=== PATIENT | male | born 1990 | race Asian ===

== ENCOUNTER 2018-10-20 22:56 | Observation (INO) | payer OTHER ==
[2018-10-20] MEDS ORDERED: NS 0.9% 1000 ML** 1,000 ML IV ONE (23:16)
[2018-10-20] MEDS ORDERED: Ondansetron INJ* 2 MG/ML VIAL IV ONE (23:22)
[2018-10-20] MEDS ORDERED: Morphine 4 MG/ML VIAL (1 ml) 4 MG/ML VIAL IV ONE (23:22)
--- NOTE | 2018-10-20 23:24 | ED ---
Abdominal Pain/Male - HPI Summary HPI Summary: Patient complains of lower abdominal pain 5 hours. Pain described as constant at 7/10 with spikes going up to 10/10. Vomiting 4-5 times today, diarrhea 4-5 times a day. Denies blood in either. Patient states he takes Tums 2 tabs 2 hours ago with no relief. Denies fever, cough, sore throat, CP, SOB, change in urine, penile or testicular symptoms. Medical history is none. Abdominal surgical history is none. - History of Current Complaint Chief Complaint: EDAbdPain Stated Complaint: ABD PAIN PER PT Time Seen by Provider: 10/20/18 23:15 Hx Obtained From: Patient Onset/Duration: Sudden Onset, Lasting Hours Timing: Constant Severity Initially: Severe Severity Currently: Severe Pain Intensity: 8 Pain Scale Used: 0-10 Numeric Location: Discrete At: RLQ, Suprapubic Radiates: No Character: Dull, Cramping Aggravating Factor(s): Nothing Alleviating Factor(s): Nothing Associated Signs And Symptoms: Positive: Decreased Appetite, Nausea, Vomiting, Diarrhea - Allergies/Home Medications Allergies/Adverse Reactions: Allergies Allergy/AdvReac Type Severity Reaction Status Date / Time No Known Allergies Allergy Verified 10/20/18 23:01 PMH/Surg Hx/FS Hx/Imm Hx Endocrine/Hematology History: Denies: Hx Diabetes Cardiovascular History: Denies: Hx Pacemaker/ICD History: Denies: Hx Dialysis, Hx Renal Disease Sensory History: Denies: Hx Hearing Aid Opthamlomology History: Denies: Hx Eye Prosthesis EENT History: Denies: Hx Deafness Neurological History: Denies: Hx Dementia Psychiatric History: Denies: Hx Panic Disorder Infectious Disease History: Yes Infectious Disease History: Denies: Traveled Outside the [place] in Last 30 Days - Family History Known Family History: Positive: Non-Contributory - Social History Alcohol Use: None Substance Use Type: Reports: None Smoking Status (MU): Never Smoked Tobacco Review of Systems Constitutional: Negative Eyes: Negative ENT: Negative Cardiovascular: Negative Respiratory: Negative Positive: Abdominal Pain, Vomiting, Diarrhea, Nausea Genitourinary: Negative Musculoskeletal: Negative Skin: Negative Neurological: Negative Psychological: Normal All Other Systems Reviewed And Are Negative: Yes Physical Exam - Summary Physical Exam Summary: Tenderness in suprapubic area and right lower quadrant. Abdominal exam otherwise unremarkable. Triage Information Reviewed: Yes Vital Signs On Initial Exam: Initial Vitals Temp Pulse Resp BP Pulse Ox 98.2 F 80 16 137/87 96 10/20/18 22:59 10/20/18 22:59 10/20/18 22:59 10/20/18 22:59 10/20/18 22:59 Vital Signs Reviewed: Yes Appearance: Positive: Well-Appearing Skin: Positive: Warm Head/Face: Positive: Normal Head/Face Inspection Eyes: Positive: Normal Neck: Positive: Supple Respiratory/Lung Sounds: Positive: Clear to Auscultation Cardiovascular: Positive: Normal Abdomen Description: Positive: Other: Musculoskeletal: Positive: Normal Neurological: Positive: Normal Psychiatric: Positive: Normal AVPU Assessment: Alert - Philomena Coma Scale Best Eye Response: 4 - Spontaneous Best Motor Response: 6 - Obeys Commands Best Verbal Response: 5 - Oriented Coma Scale Total: 15 Diagnostics - Vital Signs Vital Signs Temp Pulse Resp BP Pulse Ox 10/20/18 22:59 98.2 F 80 16 137/87 96 - Laboratory Result Diagrams: 10/20/18 23:29 10/20/18 23:29 Lab Statement: Any lab studies that have been ordered have been reviewed, and results considered in the medical decision making process. Abdominal Pain Male Course/Dx - Course Course Of Treatment: Patient complains of lower abdominal pain 5 hours. Pain described as constant at 7/10 with spikes going up to 10/10. Vomiting 4-5 times today, diarrhea 4-5 times a day. Denies blood in either. Patient states he takes Tums 2 tabs 2 hours ago with no relief. Denies fever, cough, sore throat, CP, SOB, change in urine, penile or testicular symptoms. Medical history is none. Abdominal surgical history is none. Vital signs within normal limits. WBC 17. Bili 1.5. Labs otherwise unremarkable. Patient refused morphine for pain. CT abdomen and pelvis positive for acute appendicitis uncomplicated. Patient admitted to surgery Dr. Saxena. - Diagnoses Provider Diagnoses: Acute appendicitis Discharge ED - Sign-Out/Discharge Documenting (check all that apply): Patient Departure Patient Received Moderate/Deep Sedation with Procedure: No - Discharge Plan Condition: Stable Disposition: ADMITTED TO [facility] Referrals: Ousmane Santiago MD [Primary Care Provider] - - Billing Disposition and Condition Condition: STABLE Disposition: Admitted to [facility]
[2018-10-20 23:35] LABS: ABS Eosinophils 0.1 10^3/ul (0-0.6); ABS Lymphocytes 0.8 10^3/ul (1.0-4.8); ABS Monocytes 0.6 10^3/ul (0-0.8); ABS Neutrophils 16.3 10^3/ul (1.5-7.7); Eosinophil % 0.3 %; Hematocrit 47 % (42-52); Hemoglobin 16.4 g/dL (14.0-18.0); Lymphocyte % 4.4 %; Mean Corpuscular HGB Conc 35 g/dL (31-36); Mean Corpuscular Hemoglobin 31 pg (27-31); Mean Corpuscular Volume 87 fL (80-94); Mean Platelet Volume 8.8 fL (7.4-10.4); Platelet Count 212 10^3/uL (150-450); Red Blood Count 5.39 10^6 /uL (4.18-5.48); Red Cell Distribution Width 13 % (10-15); White Blood Count 17.8 10^3/uL (3.5-10.8)
[2018-10-20 23:55] LABS: Albumin 4.8 g/dL (3.2-5.2); Albumin/Globulin Ratio 2.3 (1-3); BUN/Creatinine Ratio 10.3 (8-20); C Reactive Protein 7.87 mg/L (<8.01); Calcium 9.6 mg/dL (8.6-10.3); EGFR African American 145.6 (>60); EGFR Non-African American 120.3 (>60); Globulin 2.1 g/dL (2-4); Potassium 3.9 mmol/L (3.5-5.0); Total Bilirubin 1.5 mg/dL (0.2-1.0); Total Protein 6.9 g/dL (6.4-8.9)
[2018-10-21] MEDS ORDERED: Iohexol 300* (CONTRAST) 10 ML SDV IV ONE (00:13)
[2018-10-21] MEDS ORDERED: Piperacillin/Tazobac ADVAN(*) 3.375 GM in NS 0.9% 100 ML* 100 ML IVPB ONE ×2 (01:15→07:40)
[2018-10-21] MEDS ORDERED: NS 0.9% 1000 ML** 1,000 ML IV SCH ×2 (01:45→04:30)
[2018-10-21] MEDS ORDERED: Zosyn per Pharmacy* NOTE FOLLOW UP SCH (02:00)
[2018-10-21 03:08] LABS: Urine Appearance Clear; Urine Bilirubin Negative (Negative); Urine Blood Negative (Negative); Urine Color Yellow; Urine Glucose Negative (Negative); Urine Ketones 1+ (Negative); Urine Nitrite Negative (Negative); Urine Protein Negative (Negative); Urine Specific Gravity 1.046 (1.010-1.030); Urine Urobilinogen Negative (Negative)
[2018-10-21] MEDS ORDERED: Metoclopramide IV* 5 MG/ML 2 ML VIAL IV PRN (03:08)
[2018-10-21] MEDS ORDERED: Morphine 4 MG/ML VIAL (1 ml) 4 MG/ML VIAL IV PRN (03:10)
[2018-10-21] MEDS ORDERED: Morphine INJ* 2 MG/ML 1 ML SYRINGE (TWO MG - NEW SYRINGE VERSION) IV PRN (03:11)
[2018-10-21] MEDS ORDERED: Piperacillin/Tazobac ADVAN(*) 3.375 GM in NS 0.9% 100 ML* 100 ML IVPB SCH (07:30)
[2018-10-21] MEDS ORDERED: Influenza VAC *QUAD* 2019-20* 0.5 ML SYRINGE IM ONE (09:00)
--- NOTE | 2018-10-21 09:43 | PN ---
Progress Note - Progress Note Date of Service: 10/21/18 SOAP: Subjective: Patient seen and examined Care discussed with Tramaine Mercado NP He developed abdominal pain last night, some nausea, now anorexic Pain became localized in the RLQ, pain on movement Objective: Temp Pulse Resp BP Pulse Ox 99.0 F 68 20 114/61 99 10/21/18 07:41 10/21/18 07:41 10/21/18 07:45 10/21/18 07:41 10/21/18 07:41 PEX: Comfortable Abd is soft and non-distended. Bowel sounds are present. Tenderness with guarding in the RLQ, no mass, no peritoneal signs Labs and CT reviewed Assessment: Acute appendicitis-- Plan: Discussed clinical findings, labs and CT scan. Discussed with care of acute appendicitis and I recommend laparoscopic appendectomy today. Procedure discussed with him and the risks of, but not limited to, of bleeding, infection , abscess, sepsis, injury to peritoneal and retroperitoneal structures, open procedure, anesthesia, blood clots explained. We also discussed non-operative management with IV and oral antibiotics and I do not recommend this but he is aware of this option and wants to proceed with surgery. We also discussed post- operative hospital stay and surgery recovery times. Laparoscopic appendectomy today.
--- NOTE | 2018-10-21 10:18 | HP ---
CC: [facility], [facility] * HISTORY AND PHYSICAL: DATE OF ADMISSION: 10/21/18 LOCATION: This patient was seen at [facility] in room 332, on Sunday , 10/21/18. ATTENDING SURGEON: Dr. Niall Juarez * (dictated by Mabel Mercado NP). CHIEF COMPLAINT: Abdominal pain. HISTORY OF PRESENT ILLNESS: The patient is a 27-year-old male who presented to the emergency department around 11:30 p.m. last evening complaining of lower abdominal pain for 5 hours with a sudden onset. He described the pain as 7/10 with spikes going up to 10/10. He had vomited 4 to 5 times after the onset of the pain and also had loose stools. He denies any dysuria, fever, or chills, or any upper respiratory symptoms. He tried to take 2 Tums with no relief. He has had no previous abdominal surgery. CAT scan in the emergency department revealed a dilated thick walled appendix; mid periappendiceal inflammatory changes. White blood cell count was elevated at 17.8 with a mild left shift; electrolytes were within normal limits except for mildly elevated glucose at 110 and mildly elevated total bilirubin at 1.5. He was admitted and started on IV antibiotics and kept n.p.o. PAST MEDICAL HISTORY: Generally healthy, no acute or chronic conditions. PAST SURGICAL HISTORY: [place] teeth extraction with local anesthetic. MEDICATIONS: None currently. ALLERGIES: No known drug allergies. FAMILY HISTORY: No known anesthesia complications, bleeding tendencies, or clotting disorders. 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 No other substance abuse. REVIEW OF SYSTEMS: Constitutional: No excessive fatigue; no fever or chills at home. Endocrine: No diabetes or thyroid disease. Respiratory: No chronic cough or shortness of breath. Cardiovascular: No anginal chest pain or palpitations. Gastrointestinal: As described in history of present illness. Genitourinary: No dysuria, no hematuria. Musculoskeletal: Normal strength and tone. Neurologic: Alert and oriented x3. Moves all 4 extremities. Steady gait. General: No history of easy bleeding or blood transfusions; no history of deep vein thrombosis or pulmonary embolism; he has never received general anesthesia and tolerated local anesthesia well when he underwent wisdom teeth extraction. PHYSICAL EXAMINATION GENERAL: The patient is a 27-year-old male, well developed, well nourished, in no acute distress. VITAL SIGNS: Height 5 feet 6 inches, weight 155 pounds, body mass index 25. Blood pressure 114/60, pulse 68 and regular, respiratory rate 16, temperature 99 , O2 saturation on room air 99%. HEENT: Benign. NECK: Supple. No cervical lymphadenopathy. LUNGS: Breath sounds bilaterally clear and equal. HEART: Regular rate and rhythm. No murmurs or rubs appreciated. ABDOMEN: Hypoactive bowel sounds, nondistended, soft; exquisitely tender over McBurney point. No obvious masses or organomegaly, but exam is limited by the patient's discomfort; no guarding or rebound. GENITALIA: Exam is deferred. RECTAL: Exam is deferred. EXTREMITIES: Warm without edema or skin ulceration. NEUROLOGIC: Alert and oriented x3. SKIN: Warm, dry, intact. IMPRESSION: Acute appendicitis; CAT scan of the abdomen and pelvis consistent with dilated thick walled appendix and mid periappendiceal inflammatory changes. PLAN: Per Dr. Juarez, the patient will be taken to the operating room today for laparoscopic appendectomy; the nature of the surgical procedure was discussed as well as the postoperative recovery. The patient is in agreement to proceed as outlined. TIME SPENT: Sixty minutes with greater than 50% in [id number] history taking , physical examination, and coordination of care. CLINT MERCADO NP [id number]/[facility] #: [id number] ARUN
[2018-10-21] MEDS ORDERED: Sodium Citrate/Citric Acid* 15 ML UDC ONE (13:17)
[2018-10-21] MEDS ORDERED: Sodium Citrate/Citric Acid* 15 ML UDC PO ONE (13:18)
[2018-10-21] MEDS ORDERED: Ondansetron INJ* 2 MG/ML VIAL IV PRN (13:19)
[2018-10-21] MEDS ORDERED: HYDROcodone/ACETAMIN 5-325 MG* 1 TAB PO PRN (13:19)
[2018-10-21] MEDS ORDERED: Ketorolac INJ* 30 MG/ML 1 ML VIAL IV PRN (13:19)
[2018-10-21] MEDS ORDERED: Naloxone* 0.4 MG/ML 1 ML VIAL IV PRN (13:19)
[2018-10-21] MEDS ORDERED: fentaNYL* 50 MCG/ML 2 ML VIAL (100 MCG VIAL) IV PRN (13:19)
[2018-10-21] MEDS ORDERED: oxyCODONE/Acetamin 5/325 MG* TAB PO PRN (13:19)
[2018-10-21] MEDS ORDERED: Bupivacaine 0.25% W/EPI* 10 ML SDV ONE (13:26)
[2018-10-21] MEDS ORDERED: fentaNYL* 50 MCG/ML 2 ML VIAL (100 MCG VIAL) ONE (13:28)
[2018-10-21] MEDS ORDERED: Lidocaine 2% PF * 5 ML VIAL ONE (13:29)
[2018-10-21] MEDS ORDERED: Propofol* 10 MG/ML 20 ML BTL ONE (13:29)
[2018-10-21] MEDS ORDERED: Succinylcholine* 20 MG/ML 10 ML VIAL ONE (13:30)
[2018-10-21] MEDS ORDERED: Bupivacaine 0.25% EPI 200,000* 30 ML SDV ONE (13:50)
[2018-10-21] MEDS ORDERED: EPHEDrine (Pressors)* 50 MG/ML VIAL ONE (13:56)
[2018-10-21] MEDS ORDERED: Dexamethasone IV* 4 MG/ML 1 ML (4 MG) ONE (14:09)
[2018-10-21] MEDS ORDERED: Ondansetron INJ* 2 MG/ML VIAL ONE ×2 (14:21→16:04)
--- NOTE | 2018-10-21 14:33 | OP ---
Operative Report - Blank - Operative Report Date of Operation: 10/21/18 Note: Pre-OP Diagnoses: acute appendicitis Post-op Diagnosis: same Procedure: Laparoscopic appendectomy Surgeon: [place] Asst: none Anethesia: GETA EBL: minimal IVF: crystalloid Specimen: appendix Drains: none
[2018-10-21] MEDS ORDERED: Ketorolac INJ* 30 MG/ML 1 ML VIAL ONE (15:02)
[2018-10-21] MEDS ORDERED: oxyCODONE/Acetamin 5/325 MG* TAB ONE (15:50)
[2018-10-21] MEDS ORDERED: HYDROcodone/ACETAMIN 5-325 MG* 1 TAB ONE (15:54)
[2018-10-21 16:14] VITALS: BP 107/84
--- NOTE | 2018-10-21 22:35 | OP ---
CC: [facility]. * OPERATIVE REPORT AND DISCHARGE REPORT: DATE OF OPERATION: 10/21/18 - ROOM #332 DATE OF : 89 SURGEON: Rafa Saxena MD INFORMATION SYSTEMS SECURITY MANAGER: None. ANESTHESIOLOGIST: Dr. Francis. ANESTHESIA: General anesthesia. PRE-OP DIAGNOSIS: Acute appendicitis. POST-OP DIAGNOSIS: Acute appendicitis. OPERATIVE PROCEDURE: Laparoscopic appendectomy. ESTIMATED BLOOD LOSS: Minimal. FLUIDS: Minimal crystalloid fluid given. SPECIMEN: Appendix. DRAINS: None. INDICATIONS: The patient was identified in the preoperative area. I discussed with him the case, plan, going over the risks, benefits, and alternatives of laparoscopic appendectomy. I spoke about the possible complications, which included but were not limited to bleeding, infection, abscess formation, need for open procedure, need for additional procedures, injury to adjacent organs and prolonged hospital course. The patient understood and signed consent. DESCRIPTION OF PROCEDURE: He was marked. He was brought to the operating room and placed on the operating table in supine position. Sequential devices were placed on the bilateral lower extremities. Preoperative antibiotics were given and general anesthesia was induced. The patient's abdomen was clipped of hair and then prepped and draped in a standard surgical fashion and a time-out was performed. An infraumbilical incision was made. The skin was elevated and a Veress needle inserted into the abdominal cavity, which was then allowed to insufflate to a pressure of 15 mmHg. The patient tolerated the insufflation well. A 5-mm optical trocar was then inserted through this and a laparoscope was inserted. There was no evidence of injury from the trocar insertion or from the Veress needle and a large indurated appendix was identified in the right lower quadrant. Additional trocars were then placed in the following positions. Two 5 mm, 1 in the suprapubic area and 1 in the left lower quadrant. The scope was repositioned and we identified this enlarged appendix. It appeared that it would not come out of a 5 mm trocar site and so we upsized the umbilical port site to a 12 trocar. Next, after taking down adhesions to the lateral side wall, a window was made at the base of the appendix through healthy tissue and a 30-mm rachel JOURDAN stapling device was fired through this. Next, the mesoappendix was isolated and a 45-mm rachel JOURDAN stapling device was fired across this. Appendix was then placed in the endoscopic retrieval bag and placed in the right upper quadrant, which upon review showed a normal appearing liver and gallbladder. Review of the abdomen showed some serous fluid in the pelvis. The appendiceal staple line appeared intact without evidence of leakage or bleeding as did the mesenteric staple line. A gauze was placed into the abdomen, placed into pelvis to absorb the fluid and then brought out. An additional gauze was then placed in the staple lines and hemostasis was achieved. We placed the patient back into a neutral position. The gauze was removed followed by the appendix and its retrieval bag through the umbilical port site, which was closed at the fascial layer with an 0 Vicryl suture using a Weck device. The abdomen was allowed to collapse. Trocars were removed under direct vision and all 3 skin incisions were reapproximated with 4- 0 Monocryl subcuticular sutures followed by Steri-Strips and sterile dressing. The patient tolerated the procedure well and was transferred to the PACU. DISCHARGE SUMMARY: Mr. Holalnd is a 27-year-old gentleman who was admitted with acute appendicitis to my service in the overnight. Please see H and P for full details. The patient underwent laparoscopic appendectomy. Please see operative report for details. The patient was transferred to PACU in a stable condition for planned discharge home in stable condition for followup in my office. Prescription was sent for Percocet to [facility]. [id number]/[facility] #: [id number] MTDShaheed
== END 2018-10-21 17:00 | disposition home or self-care (01) | DRG 343 ==
LOC: ED 22:56 → INTOOBSV 10-21 01:21 → SSU 10-21 01:21
PROVIDERS: ADMIT Surgery; ATTEND Surgery
DX: K35.80 Unspecified acute appendicitis (principal); R10.30 Lower abdominal pain, unspecified; R11.2 Nausea with vomiting, unspecified; R19.7 Diarrhea, unspecified
CPT/HCPCS: 36415; 74177; 80053; 81003; 83605; 83690; 85025; 86140; 88304; 90471; 90686; 96374; 96375; 99285; A9270-GY; C1776; G0008; G0378; J0330; J1100; J1885; J2270; J2405; J2543; J2704; J3010; Q9967